=== PATIENT | female | born 1945 | race Two or more races ===

== ENCOUNTER 2024-04-10 02:54 | Emergency (ER) | payer OTHER ==
[~2024-04-10] VITALS: Ht 167.6 cm; Wt 62.6 kg
[2024-04-10 03:02] VITALS: TEMP 98.1
[2024-04-10] MEDS ORDERED: LOSARTAN POTASSIUM 50 MG TABLET ONE (03:33)
[2024-04-10] MEDS ORDERED: AMLODIPINE BESYLATE 5 MG TABLET ONE (03:33)
[2024-04-10] MEDS: LOSARTAN POTASSIUM 25 MG TABLET PO ONE (03:36)
[2024-04-10] MEDS: AMLODIPINE BESYLATE 5 MG TABLET PO ONE (03:36)
[2024-04-10] MEDS ORDERED: LOSA50TA39 PO (03:38)
[2024-04-10] MEDS ORDERED: AMLO-212 PO (03:38)
[2024-04-10 03:52] VITALS: BP 158/52; O2SAT 98
== END 2024-04-10 04:27 ==
LOC: ER 03:02
DX: I11.0 Hypertensive heart disease with heart failure (principal); I50.9 Heart failure, unspecified; E11.9 Type 2 diabetes mellitus without complications